=== PATIENT | female | born 1970 | race Caucasian/White ===

== ENCOUNTER 2021-07-13 20:00 | Outpatient (CLI) | payer OTHER, SELFPAY | END 2021-07-13 20:01 | disposition home or self-care (01) | LOC: SLEEP 07-14 08:15 | PROVIDERS: Visit Provider Chiropractor | DX: G47.30 Sleep apnea, unspecified (principal); I73.9 Peripheral vascular disease, unspecified | CPT/HCPCS: 95810 ==

== ENCOUNTER 2021-10-02 12:54 | Outpatient (CLI) | payer OTHER, SELFPAY ==
--- NOTE | 2021-10-02 13:05 | USCV_ITS ---
LaytonDinora castillo Age: 51 Gender: F : 1970 Exam Date: 10/02/2021 13:24 Ordering Phys: Obdulio Marshall Technologist: Exam Location: [facility] [place] Indication: BILAT ARM PAIN Risk Factors: Smoker Previous Vascular Surgery: Right BP: / Left BP: / RIGHT LEFT PSV PSV (cm/s) (cm/s) Waveform Waveform Triphasic 87.0 Subclavian Proximal 100.0 Triphasic Triphasic 74.0 Subclavian Distal 106.0 Triphasic Triphasic 105.0 Axillary 106.0 Triphasic Triphasic 98.0 Brachial Proximal Triphasic 82.0 Brachial Mid 96.0 Triphasic Brachial at AC 72.0 Triphasic Triphasic 62.0 Radial Mid 57.0 Triphasic Radial at Wrist 68.0 Triphasic Triphasic 62.0 Ulnar Mid 62.0 Triphasic Ulnar at Wrist 44.0 Triphasic 1.0 Radial/Brachial Index 1.0 1.0 Ulnar/Brachial Index 1.0 FINDINGS Normal arterial Doppler waveforms Normal RBIs and you UBIs bilaterally CONCLUSIONS No evidence of arterial obstruction in the above-mentioned arteries, based on the current findings. Dr Liam Peres MD [facility] (Electronically Signed) Final Date: 02 October 2021 17:23 S
== END 2021-10-02 12:55 | disposition home or self-care (01) ==
LOC: US 12:55
PROVIDERS: Visit Provider Chiropractor
DX: I73.9 Peripheral vascular disease, unspecified (principal); M79.602 Pain in left arm; M79.601 Pain in right arm
CPT/HCPCS: 93930